=== PATIENT | male | born 1970 | race Two or more races ===

== ENCOUNTER 2022-03-19 03:03 | Emergency (ER) | payer OTHER ==
[~2022-03-19] VITALS: Ht 177.8 cm; Wt 90.7 kg
[2022-03-19] MEDS ORDERED: EPINEPHrine HCL 1 MG/1 ML AMP SC ONE (04:00)
[2022-03-19] MEDS ORDERED: methylPREDNISolone SOD SUCC 125 MG/2 ML VL IM ONE (04:00)
[2022-03-19 06:50] VITALS: BP 145/78
== END 2022-03-19 06:50 | disposition home or self-care (01) ==
LOC: ER 03:03
DX: K13.79 Other lesions of oral mucosa (principal); T78.40XA Allergy, unspecified, initial encounter; X58.XXXA Exposure to other specified factors, initial encounter
CPT/HCPCS: 71045; 93005; 96372; 99284; J0171; J2930

== ENCOUNTER 2022-10-14 06:01 | Emergency (ER) | payer MEDICAID, OTHER ==
[~2022-10-14] VITALS: Ht 177.8 cm; Wt 90.9 kg
[2022-10-14] MEDS ORDERED: AMOX-277 PO (07:13)
[2022-10-14] MEDS ORDERED: IBUP800T26 PO (07:13)
[2022-10-14 07:17] VITALS: BP 139/100
== END 2022-10-14 07:14 | disposition home or self-care (01) ==
LOC: ER 06:01
DX: K04.7 Periapical abscess without sinus (principal)